=== PATIENT | female | born 1940 | race Caucasian/White ===

== ENCOUNTER 2017-04-27 07:24 | Day surgery (SDC) | payer MEDICARE, BC ==
[~2017-04-27 07:24] MED LIST: LIDOCAINE HCL 1% MPF 30 SOL ONE; PROPOFOL 500 MG/50 ML EMU IV ONE
[2017-04-27 08:46] VITALS: TEMP 97.7
[2017-04-27 09:12] VITALS: BP 116/71; PULSE 56; RESP 20; O2SAT 96
== END 2017-04-27 09:20 | disposition home or self-care (01) | DRG 951 ==
LOC: SURG 07:24
PROVIDERS: ATTEND Surgery
DX: Z12.11 Encounter for screening for malignant neoplasm of colon (principal); K57.30 Diverticulosis of large intestine without perforation or abscess without bleeding; Z86.010 Personal history of colon polyps
CPT/HCPCS: J2001; J2704